=== PATIENT | male | born 1990 | race American Indian/Alaskan Native ===

== ENCOUNTER 2017-05-13 19:01 | Emergency (ER) | payer BC ==
[2017-05-13 19:15] VITALS: BP 144/94
--- NOTE | 2017-05-13 19:34 | EDM.PDOC ---
ED HPI GENERAL MEDICAL PROBLEM - General Chief Complaint: Lower Extremity Injury/Pain Stated Complaint: RIGHT HIP PAIN Time Seen by Provider: 05/13/17 19:20 Source of Information: Reports: Patient History Limitations: Reports: No Limitations - History of Present Illness INITIAL COMMENTS - FREE TEXT/NARRATIVE: The patient presents with right hip and low back pain. This started last night after he helped his aunt move. He has a history of a hip dislocation that was reduced and he had a bone chip after that that has been giving him some trouble. Onset: Sudden Duration: Day(s): (Last night) Location: Reports: Back (Right lower), Lower Extremity, Right (hip) Quality: Reports: Sharp Severity: Moderate Improves with: Reports: None Worsens with: Reports: Movement Associated Symptoms: Reports: No Other Symptoms Right Hip Pain Score (Numeric/FACES): 10 - Related Data Allergies Allergy/AdvReac Type Severity Reaction Status Date / Time No Known Allergies Allergy Verified 05/13/17 19:15 Home Meds: Home Meds Hydrocodone/Acetaminophen [Hydrocodon-Acetaminophen 5-325] 1 - 2 each PO Q6HR PRN #20 tablet 05/13/17 [Rx] Naproxen [Naprosyn] 500 mg PO Q12HR #20 tablet 05/13/17 [Rx] Review of Systems - Review of Systems Review Of Systems: See Below Constitutional: Reports: No Symptoms Eyes: Reports: No Symptoms Ears: Reports: No Symptoms Nose: Reports: No Symptoms Mouth/Throat: Reports: No Symptoms Respiratory: Reports: No Symptoms Cardiovascular: Reports: No Symptoms GI/Abdominal: Reports: No Symptoms Genitourinary: Reports: No Symptoms Musculoskeletal: Reports: Other (Right hip pain and low back pain) ED EXAM, GENERAL - Physical Exam Exam: See Below Exam Limited By: No Limitations General Appearance: Alert, No Apparent Distress Ears: Normal External Exam Nose: Normal Inspection Head: Atraumatic, Normocephalic Neck: Normal Inspection Respiratory/Chest: No Respiratory Distress, Lungs Clear, Normal Breath Sounds Cardiovascular: Regular Rate, Rhythm, No Edema, No Murmur GI/Abdominal: Soft, Non-Tender, No Organomegaly, No Mass Back Exam: Other (Pain upon palpation to the right lower back) Extremities: Other (Right hip pain upon palpation. Good sensation and pulses distally.) Course - Vital Signs Last Recorded V/S: Last Vital Signs Temp 98.2 F 05/13/17 19:13 Pulse 92 05/13/17 19:13 Resp 18 05/13/17 19:13 BP 144/94 H 05/13/17 19:13 Pulse Ox 99 05/13/17 19:13 Departure - Departure Time of Disposition: 19:35 Disposition: Home, Self-Care 01 Condition: Good Clinical Impression: Right hip pain Low back pain Qualifiers: Chronicity: acute Back pain laterality: right Sciatica presence: without sciatica Qualified Code(s): M54.5 - Low back pain - Discharge Information Prescriptions: Hydrocodone/Acetaminophen [Hydrocodon-Acetaminophen 5-325] 1 - 2 each PO Q6HR PRN #20 tablet PRN Reason: Pain Naproxen [Naprosyn] 500 mg PO Q12HR #20 tablet Referrals: Emily Medeiros PA-C [Physician Purchasing Buyer] - 1 Week Forms: ED Department Discharge Additional Instructions: Take the naprosyn 2 times per day and the hydrocodone for pain. Follow up with Emily Medeiros if you are not better.
== END 2017-05-13 20:06 | disposition home or self-care (01) ==
LOC: JD.ED 19:01
DX: M25.551 Pain in right hip (principal); M54.5 Low back pain; X58.XXXA Exposure to other specified factors, initial encounter
CPT/HCPCS: 99283

== ENCOUNTER 2017-05-15 11:37 | Emergency (ER) | payer BC ==
[2017-05-15] MEDS ORDERED: Ketorolac 60 MG/2 ML SDV IM ONE (12:34)
[2017-05-15] MEDS ORDERED: Ondansetron 4 MG Tab.DIS PO ONE (12:35)
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
[2017-05-15 14:39] VITALS: BP 120/82
--- NOTE | 2017-05-16 09:29 | CR ---
Lumbar spine: AP, lateral and coned-down lateral views centered to the lumbosacral junction were obtained. Vertebral body heights and disc spaces are preserved. Pedicles as well as transverse and spinous processes are intact. No subluxation or fracture is seen. Sacroiliac joints are within normal limits. Impression: 1. No abnormality is identified on three-view lumbar spine study. Diagnostic code #2
--- NOTE | 2017-05-16 09:29 | CT ---
Head CT Technique: Multiple axial sections were obtained through the brain. Intravenous contrast was not utilized. Comparison: No previous intracranial imaging. Findings: Ventricles along the basal cisterns and sulci over the convexities are within normal limits for the patient's age. No abnormal parenchymal densities are seen. No evidence of intracranial hemorrhage. No midline shift or mass effect is seen. Bone window settings were reviewed which show no discrete calvarial abnormality. Visualized sinuses are clear. Impression: 1. No acute intracranial abnormality is identified. Diagnostic code #1 Agree with preliminary report issued by [facility] ([facility] preliminary report dictated on 05/15/17, 2:32 PM Central Time)
--- NOTE | 2017-05-16 09:29 | CR ---
Thoracic spine: AP, lateral and swimmer's views of the thoracic spine was obtained. Comparison: No previous study. Slight anterior wedging noted of a midthoracic vertebral body. Vertebral body heights otherwise are maintained. Disc spaces are preserved. No subluxation is seen. Impression: 1. Slight anterior wedging of a midthoracic vertebral body. Age of this is indeterminate. If further evaluation for acute compression deformity is needed, MRI would be helpful. 2. No abnormal subluxation or other abnormality is appreciated. Diagnostic code #3
== END 2017-05-15 13:20 | disposition home or self-care (01) ==
LOC: JD.ED 11:37
DX: S39.012A Strain of muscle, fascia and tendon of lower back, initial encounter (principal); S00.33XA Contusion of nose, initial encounter; V89.2XXA Person injured in unspecified motor-vehicle accident, traffic, initial encounter; Y92.410 Unspecified street and highway as the place of occurrence of the external cause; F17.210 Nicotine dependence, cigarettes, uncomplicated
CPT/HCPCS: 70450; 72070; 72100; 96372; 99284; A9270; J1885

== ENCOUNTER 2018-05-30 09:48 | Emergency (ER) | payer BC ==
[2018-05-30 10:07] VITALS: BP 109/65
--- NOTE | 2018-05-30 10:07 | EDM.PDOC ---
<Elliott Lambert - Last Filed: 05/30/18 10:06> ED HPI GENERAL MEDICAL PROBLEM - General Chief Complaint: Upper Extremity Injury/Pain Stated Complaint: L HAND INJURY Time Seen by Provider: 05/30/18 10:05 - Related Data Allergies Allergy/AdvReac Type Severity Reaction Status Date / Time No Known Allergies Allergy Verified 05/30/18 10:00 Home Meds: Home Meds . [No Known Home Meds] 05/30/18 [History] Past Medical History - Past Health History Medical/Surgical History: Denies Medical/Surgical History Musculoskeletal History: Reports: Fracture, Other (See Below) Other Musculoskeletal History: dislocated hip Neurological History: Reports: Migraines - Infectious Disease History Infectious Disease History: Reports: Chicken Pox Social & Family History - Caffeine Use Caffeine Use: Reports: Energy Drinks, Soda Course - Vital Signs Last Recorded V/S: Last Vital Signs Temp 36.9 C 05/30/18 10:01 Pulse 96 05/30/18 10:01 Resp 13 05/30/18 10:01 BP 109/65 05/30/18 10:01 Pulse Ox 98 05/30/18 10:01 - Orders/Labs/Meds Orders: Active Orders 24 hr Category Date Time Status Hand Comp Min 3V Lt [CR] Stat Exams 05/30/18 10:26 Taken Wrist Comp Min 3V Lt [CR] Stat Exams 05/30/18 10:30 Taken Meds: Medications Discontinued Medications Generic Name Dose Route Start Last Admin Trade Name Freq PRN Reason Stop Dose Admin Ibuprofen 600 mg 05/30/18 11:11 Motrin PO 05/30/18 11:12 ONETIME ONE Oxycodone/Acetaminophen 1 tab 05/30/18 11:12 Percocet 325-5 Mg PO 05/30/18 11:13 ONETIME ONE Departure - Departure Disposition: Home, Self-Care 01 Clinical Impression: Sprain of left wrist Contusion of hand, left Qualifiers: Encounter type: initial encounter Qualified Code(s): S60.222A - Contusion of left hand, initial encounter - Discharge Information Referrals: PCP,None [Primary Care Provider] - Forms: ED Department Discharge Additional Instructions: Evaluation the emergency room today in regards to trip and fall at home with blunt trauma to the left hand particularly the palmar aspect of the left thumb. You have contused the thenar eminence muscles with marked swelling muscles at the base of your thumb which limited mobility. X-rays of your left hand do not reveal any broken bones within the left thumb or hand. Similarly x-rays of the left wrist reveal the wrist bones to be normal. It is therefore Josue wrap on during the day and off at night for about the next 3 days. Ice pack to the area for one half hour out of every 4 hours today and tomorrow. Try keep the hand elevated at the level of your heart is much as possible to limit swelling. Given one Percocet tablet in the ED with Motrin 600 mg. Continue Motrin 600 mg every 6 hours as needed for pain relief for the next few days. The swelling and pain should improve quite dramatically over the next 3-5 days. - My Orders Last 24 Hours: My Active Orders 05/30/18 10:26 Hand Comp Min 3V Lt [CR] Stat 05/30/18 10:30 Wrist Comp Min 3V Lt [CR] Stat - Assessment/Plan Last 24 Hours: My Active Orders 05/30/18 10:26 Hand Comp Min 3V Lt [CR] Stat 05/30/18 10:30 Wrist Comp Min 3V Lt [CR] Stat <Zia Caro - Last Filed: 05/30/18 11:16> ED HPI GENERAL MEDICAL PROBLEM - General Source of Information: Reports: Patient, Family History Limitations: Reports: No Limitations - History of Present Illness INITIAL COMMENTS - FREE TEXT/NARRATIVE: 28-year-old male presents to the ED for evaluation of acute injury to his left hand and wrist. Patient states he was walking out his door to the outside stairway this morning when he tripped and fell over the soap light. He struck the or frame with the palmar aspect of his left hand. He has significant swelling of the thenar eminence and limited mobility of his left thumb and complains of pain throughout the distal wrist. Injury occurred about 8:30 this morning. Denies hitting his head or injuring any other body parts. Not sure when his last tetanus toxoid was updated. Onset: Today Onset Date: 05/30/18 Onset Time: 08:30 Duration: Minutes: Location: Reports: Upper Extremity, Left (Left volar hand particularly the thenar eminence thumb and distal radius) Quality: Reports: Ache, Throbbing Severity: Moderate Improves with: Reports: Rest Worsens with: Reports: Movement Context: Reports: Trauma (It can fell while walking out of his apartment today over the sole plate. Hit the door jam hard with his left hand and wrist area.). Denies: Activity, Exercise, Lifting, Sick Contact Associated Symptoms: Reports: No Other Symptoms Treatments CREATIVE ARTS THERAPIST: Reports: Other (see below) (None.) Left Wrist Pain Score (Numeric/FACES): 10 Social & Family History - Living Situation & Occupation Living situation: Reports: Single, with Significant Other Occupation: Employed Review of Systems - Review of Systems Review Of Systems: See Below Constitutional: Reports: No Symptoms Eyes: Reports: No Symptoms Ears: Reports: No Symptoms Nose: Reports: No Symptoms Mouth/Throat: Reports: No Symptoms Respiratory: Reports: No Symptoms Cardiovascular: Reports: No Symptoms GI/Abdominal: Reports: No Symptoms Genitourinary: Reports: No Symptoms Musculoskeletal: Reports: Other (Acute injury to his left hand and wrist area today. See history of present illness) Skin: Reports: No Symptoms Neurological: Reports: No Symptoms Psychiatric: Reports: No Symptoms ED EXAM, GENERAL - Physical Exam Exam: See Below Exam Limited By: No Limitations General Appearance: Alert, WD/WN, Moderate Distress (Seems to be in significant discomfort.) Respiratory/Chest: No Respiratory Distress, Lungs Clear, Normal Breath Sounds, No Accessory Muscle Use Cardiovascular: Normal Peripheral Pulses, Regular Rate, Rhythm, No Edema, No Gallop, No Murmur, No Rub Extremities: Other (Examination limited to his left hand which he is left-hand dominant. He has significant swelling with erythema and thenar eminence and pain throughout the first metacarpal joint. Pain distal radius and ulna also on exam and scaphoid area. Elbow is intact mid forearm appeared to be normal. He has no other injuries. There is a small avulsion of skin superficial 3 mm in diameter over the proximal thenar eminence.) Neurological: Alert, Oriented, CN II-XII Intact, Normal Cognition Psychiatric: Normal Affect, Normal Mood Skin Exam: Warm, Dry, Intact, Normal Color, No Rash Course - Orders/Labs/Meds Orders: Active Orders 24 hr Category Date Time Status Hand Comp Min 3V Lt [CR] Stat Exams 05/30/18 10:26 Taken Wrist Comp Min 3V Lt [CR] Stat Exams 05/30/18 10:30 Taken Meds: Medications Discontinued Medications Generic Name Dose Route Start Last Admin Trade Name Allen PRN Reason Stop Dose Admin Ibuprofen 600 mg 05/30/18 11:11 Motrin PO 05/30/18 11:12 ONETIME ONE Oxycodone/Acetaminophen 1 tab 05/30/18 11:12 Percocet 325-5 Mg PO 05/30/18 11:13 ONETIME ONE - Radiology Interpretation Free Text/Narrative:: 28-year-old male presents the ED after an acute fall at home. He jammed up his left wrist and hand when he hit the door frame. He has marked swelling over the thenar eminence and lipid very limited mobility of his left thumb with pain throughout the first metacarpal joint. Pain throughout the distal radius and ulna as well. Plan x-ray of the hand and wrist to be obtained. - Re-Assessments/Exams Free Text/Narrative Re-Assessment/Exam: 05/30/18 11:12 x-rays of the left hand reveal no fractures. Similarly x-rays of the left wrist reveal no fractures. Treatment will be conservative with Josue wrap elevation above level of heart for the next 2 days and ice pack every 4 hours to the area. Motrin 600 mg every 6 hours needed for pain relief Departure - Departure Time of Disposition: 11:13 Condition: Fair - Discharge Information *PRESCRIPTION DRUG MONITORING PROGRAM REVIEWED*: Not Applicable *COPY OF PRESCRIPTION DRUG MONITORING REPORT IN PATIENT DONOVAN: Not Applicable - My Orders Last 24 Hours: My Active Orders 05/30/18 10:26 Hand Comp Min 3V Lt [CR] Stat 05/30/18 10:30 Wrist Comp Min 3V Lt [CR] Stat - Assessment/Plan Last 24 Hours: My Active Orders 05/30/18 10:26 Hand Comp Min 3V Lt [CR] Stat 05/30/18 10:30 Wrist Comp Min 3V Lt [CR] Stat
[2018-05-30] MEDS ORDERED: Ibuprofen 600 MG Tab PO ONE (11:11)
[2018-05-30] MEDS ORDERED: Acetaminophen/oxyCODONE 325-5 MG Tab PO ONE (11:12)
--- NOTE | 2018-06-03 12:34 | CR ---
Left wrist: Four views of the left wrist were obtained. Comparison: No prior study. Joint spaces are preserved. No fracture, dislocation or other bony abnormality is seen. Impression: 1. No abnormality is identified on the left wrist exam. Diagnostic code #1
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
== END 2018-05-30 11:30 | disposition home or self-care (01) ==
LOC: JD.ED 09:48
DX: S63.502A Unspecified sprain of left wrist, initial encounter (principal); S60.222A Contusion of left hand, initial encounter; W01.198A Fall on same level from slipping, tripping and stumbling with subsequent striking against other object, initial encounter
CPT/HCPCS: 73110; 73130; 99283; A9270

== ENCOUNTER → 2019-03-08 21:25 | Emergency (ER) | payer BC | END | disposition left against medical advice (07) | LOC: JD.ED 21:25 | DX: Z53.21 Procedure and treatment not carried out due to patient leaving prior to being seen by health care provider (principal) ==

== ENCOUNTER 2019-03-09 01:44 | Emergency (ER) | payer BC, MEDICAID ==
[2019-03-09 01:58] VITALS: BP 134/85
[2019-03-09] MEDS ORDERED: Doxycycline 100 MG Cap PO ONE (02:45)
--- NOTE | 2019-03-09 02:50 | EDM.PDOC ---
ED HPI GENERAL MEDICAL PROBLEM - General Chief Complaint: Skin Complaint Stated Complaint: ABCESS IN ARM Time Seen by Provider: 03/09/19 02:29 Source of Information: Reports: Patient, RN Notes Reviewed - History of Present Illness INITIAL COMMENTS - FREE TEXT/NARRATIVE: 29-year-old male comes in with concern about infection developing antecubital space right arm. It started getting sore about a day and a half ago and now there is some erythema developing around the area of soreness. Fever or chills. He has been using IV drugs with frequent needle access to that area. Right Arm Pain Score (Numeric/FACES): 5 - Related Data Allergies Allergy/AdvReac Type Severity Reaction Status Date / Time No Known Allergies Allergy Verified 03/09/19 01:58 Home Meds: Home Meds . [No Known Home Meds] 05/30/18 [History] Past Medical History - Past Health History Medical/Surgical History: Denies Medical/Surgical History Musculoskeletal History: Reports: Fracture, Other (See Below) Other Musculoskeletal History: dislocated hip Neurological History: Reports: Migraines Psychiatric History: Reports: Addiction - Infectious Disease History Infectious Disease History: Reports: Chicken Pox Social & Family History - Tobacco Use Smoking Status *Q: Current Some Day Smoker Years of Tobacco use: 10 Packs/Tins Daily: 0.5 Used Tobacco, but Quit: No - Caffeine Use Caffeine Use: Reports: Coffee - Recreational Drug Use Recreational Drug Use: Yes Drug Use in Last 12 Months: Yes Recreational Drug Type: Reports: Methamphetamine Recreational Drug Use Frequency: Binges - Living Situation & Occupation Living situation: Reports: Single, with Significant Other Occupation: Employed ED ROS GENERAL - Review of Systems Review Of Systems: See Below Constitutional: Denies: Fever, Chills, Diaphoresis HEENT: Denies: Throat Pain Respiratory: Reports: No Symptoms Cardiovascular: Denies: Chest Pain GI/Abdominal: Denies: Abdominal Pain, Vomiting Musculoskeletal: Reports: Arm Pain Skin: Reports: Erythema (small area of localized erythema antecubital space right right arm) Neurological: Reports: No Symptoms ED EXAM, SKIN/RASH Exam: See Below General Appearance: Alert, No Apparent Distress Head: Atraumatic Neck: Supple Respiratory/Chest: No Respiratory Distress Cardiovascular: Tachycardia (mild, rate 106) Extremities: Redness (there is very localized erythema of the antecubital space right forearm measuring about 1.5 x 3 cm. Very small area of localized swelling and tenderness.), Other (needle track barnes visible.) Neurological: No Motor/Sensory Deficits Course - Vital Signs Last Recorded V/S: Last Vital Signs Temp 96.7 F 03/09/19 01:51 Pulse 106 H 03/09/19 01:51 Resp 20 03/09/19 01:51 BP 134/85 03/09/19 01:51 Pulse Ox 100 03/09/19 01:51 - Orders/Labs/Meds Meds: Medications Discontinued Medications Generic Name Dose Route Start Last Admin Trade Name Allen PRN Reason Stop Dose Admin Doxycycline Hyclate 200 mg 03/09/19 02:45 03/09/19 02:50 Vibramycin PO 03/09/19 02:46 200 mg ONETIME ONE Administration Departure - Departure Time of Disposition: 03:00 Disposition: Home, Self-Care 01 Condition: Fair Clinical Impression: Cellulitis Qualifiers: Site of cellulitis: extremity Site of cellulitis of extremity: upper extremity Laterality: right Qualified Code(s): L03.113 - Cellulitis of right upper limb - Discharge Information Instructions: Cellulitis, Adult, [id number] Referrals: PCP,None [Primary Care Provider] - Forms: ED Department Discharge Additional Instructions: warm compresses area of infection 2-3 times daily, doxycycline 200 mg twice daily for 3 days and than 100 mg twice daily. follow-up clinic if symptoms not resolving as expected, return to ED as needed.
== END 2019-03-09 02:56 | disposition home or self-care (01) ==
LOC: JD.ED 01:44
DX: L03.113 Cellulitis of right upper limb (principal); F17.210 Nicotine dependence, cigarettes, uncomplicated
CPT/HCPCS: 99283; A9270

== ENCOUNTER 2019-05-26 22:10 | Emergency (ER) | payer MEDICAID ==
[2019-05-26 22:17] VITALS: BP 139/94
--- NOTE | 2019-05-26 22:25 | EDM.PDOC ---
ED HPI GENERAL MEDICAL PROBLEM - General Chief Complaint: Upper Extremity Injury/Pain Stated Complaint: LAW ENFORCEMENT Time Seen by Provider: 05/26/19 22:13 - History of Present Illness INITIAL COMMENTS - FREE TEXT/NARRATIVE: 29-year-old male presents emergency room with a right hand injury. Shortly before arrival the patient who is incarcerated punched a metal door and now has a sore right hand that is red and swollen. Patient denies any other injuries. Right Hand Pain Score (Numeric/FACES): 7 - Related Data Allergies Allergy/AdvReac Type Severity Reaction Status Date / Time No Known Allergies Allergy Verified 05/26/19 22:18 Home Meds: Home Meds . [No Known Home Meds] 05/30/18 [History] Past Medical History - Past Health History Medical/Surgical History: Denies Medical/Surgical History Musculoskeletal History: Reports: Fracture, Other (See Below) Other Musculoskeletal History: dislocated hip Neurological History: Reports: Migraines Psychiatric History: Reports: Addiction - Infectious Disease History Infectious Disease History: Reports: Chicken Pox Social & Family History - Caffeine Use Caffeine Use: Reports: Coffee - Living Situation & Occupation Living situation: Reports: Single, with Significant Other Occupation: Employed Review of Systems - Review of Systems Review Of Systems: See Below Constitutional: Reports: No Symptoms Respiratory: Reports: No Symptoms Cardiovascular: Reports: No Symptoms GI/Abdominal: Reports: No Symptoms ED EXAM, GENERAL - Physical Exam Exam: See Below Exam Limited By: No Limitations General Appearance: Alert, No Apparent Distress Head: Atraumatic, Normocephalic Neck: Normal Inspection, Supple, Non-Tender, Full Range of Motion Respiratory/Chest: No Respiratory Distress, Lungs Clear, Normal Breath Sounds Cardiovascular: Regular Rate, Rhythm, No Edema, No Murmur Extremities: Other (Examination of the right hand shows a normal wrist good range of motion of the arm he has marked swelling over the distal dorsum of the hand over the third and fourth carpal heads and to a lesser degree the fifth metatarsal head he has significant swelling between the third and fourth metacarpal is limited range of motion due to pain neurologic sensation in the digits appears to be intact) ED TRAUMA EXTREMITY PROCEDURES - Splinting Right Upper Extremity Pre-Procedure NV Status: Normal Post-Procedure NV Status: Normal Splint Material: Fiberglass Splint Design: [employer]olar Applied & Form Fitted By: Provider Provider Post-Splint Application NV Check: NV Status Normal Complications: No Course - Vital Signs Last Recorded V/S: Last Vital Signs Temp 36.8 C 05/26/19 22:13 Pulse 77 05/26/19 22:13 Resp 16 05/26/19 22:13 BP 139/94 H 05/26/19 22:13 Pulse Ox 100 05/26/19 22:13 - Orders/Labs/Meds Orders: Active Orders 24 hr Category Date Time Status Hand Comp Min 3V Rt [CR] Stat Exams 05/26/19 22:18 Taken - Re-Assessments/Exams Free Text/Narrative Re-Assessment/Exam: 05/26/19 23:49 Examination of the hand does not reveal any obvious acute fracture dislocation, IM a little suspicious of underlying fracture than I'm not seeing at this time. The patient's placed in a short arm volar splint in neutral position. Departure - Departure Time of Disposition: 23:51 Disposition: DC/Tfer to Court of Law En 21 Clinical Impression: Injury of right hand - Discharge Information Forms: ED Department Discharge Additional Instructions: Return to emergency room if any questions problems worsening symptoms. Have his hand reevaluated by the provider there at the [facility] in 2 days. Ibuprofen as needed for discomfort. Keep your hand elevated as much as you can use ice for the next couple of days - My Orders Last 24 Hours: My Active Orders 05/26/19 22:18 Hand Comp Min 3V Rt [CR] Stat - Assessment/Plan Last 24 Hours: My Active Orders 05/26/19 22:18 Hand Comp Min 3V Rt [CR] Stat
--- NOTE | 2019-05-27 08:05 | CR ---
Right hand: Four views of the right hand were obtained. Comparison: No prior right hand exam. Soft tissue swelling is noted. Deformity is noted of the 5th metacarpal likely relating to old healed fracture. No acute fracture or dislocation is seen. Impression: 1. Soft tissue swelling. 2. Probable old healed fracture within the 5th metacarpal. 3. No acute bony abnormality is identified on right hand exam. Diagnostic code #3
== END 2019-05-26 23:57 ==
LOC: JD.ED 22:10
DX: S69.91XA Unspecified injury of right wrist, hand and finger(s), initial encounter (principal); W22.8XXA Striking against or struck by other objects, initial encounter
CPT/HCPCS: 29125; 73130-26-RT; 73130-RT; 99283-25

== ENCOUNTER 2024-01-24 09:26 | Emergency (ER) | payer SELFPAY ==
[2024-01-24] MEDS: Haloperidol Lactate 5 MG/ML SDV IM ONE (09:38)
[2024-01-24] MEDS: Lactated Ringers 1,000 ML IV ONE ×2 (09:49→10:54)
[2024-01-24] MEDS: Haloperidol Lactate 5 MG/ML SDV ONE (09:51)
[2024-01-24 10:02] LABS: BASOPHILS ABSOLUTE AUTO 0.1 K/mm3 (0.0-0.2); BASOPHILS PERCENT AUTO 0.4 % (0.0-1.0); HEMATOCRIT 46.8 % (42.0-52.0); HEMOGLOBIN 16.3 gm/dl (14.0-18.0); IMMATURE GRAN ABSOLUTE AUTO 0.07 K/mm3 (0.00-0.05); IMMATURE GRAN PERCENT AUTO 0.5 % (0.0-0.4); LYMPHOCYTES ABSOLUTE AUTO 4.5 K/mm3 (1.0-4.8); LYMPHOCYTES PERCENT AUTO 32.6 % (24.0-44.0); MEAN CORPUSCULAR HEMOGLOBIN 29.9 pg (28.0-32.0); MEAN CORPUSCULAR HGB CONC 34.8 g/dl (32.0-36.0); MEAN CORPUSCULAR VOLUME 85.7 fl (83.0-99.0); MONOCYTES ABSOLUTE AUTO 0.8 K/mm3 (0.0-0.8); MONOCYTES PERCENT AUTO 5.6 % (0.0-8.0); NEUTROPHILS ABSOLUTE AUTO 8.3 K/mm3 (1.8-7.7); NEUTROPHILS PERCENT AUTO 60.9 % (41.0-71.0); PLATELET COUNT,PLT 337 K/mm3 (150-400); RED BLOOD CELL COUNT 5.46 M/mm3 (4.52-5.90); WHITE BLOOD CELL COUNT,WBC 13.67 K/mm3 (3.9-11.3)
[2024-01-24 10:25] LABS: A/G RATIO 1.1 (1-2); ALBUMIN 4.4 g/dl (3.4-5.0); ANION GAP 19.6 (5-15); BILIRUBIN TOTAL 1.1 mg/dL (0.2-1.0); BUN/CREATININE RATIO 11.7 (14-18); CALCIUM 8.6 mg/dL (8.5-10.1); CREATININE 1.2 mg/dL (0.7-1.3); EST CRCL DRUG DOSING (CG) 85.5 mL/min; ETHANOL BLOOD MEDICAL 0.32 gm% (0.00); POTASSIUM,K 3.6 mEq/L (3.5-5.1); PROTEIN TOTAL,TP 8.6 g/dl (6.4-8.2)
[2024-01-24 12:27] LABS: BARBITURATE SCREEN,URINE NEGATIVE (CUTOFF=200); BENZODIAZEPINES SCREEN,URINE NEGATIVE (CUTOFF=150); BUPRENORPHINE SCREEN,URINE NEGATIVE (CUTOFF=10); METHADONE SCREEN, URINE NEGATIVE (CUT0FF=200); METHAMPHETAMINES SCREEN, URINE NEGATIVE (CUTOFF=500); OXYCODONE SCREEN,URINE NEGATIVE (CUT0FF=100); THC SCREEN,URINE 20 NG/ML PRESUMPTIVE POSITIVE (CUTOFF=50)
[2024-01-24 12:29] LABS: AMPHETAMINES SCREEN, URINE NEGATIVE (CUTOFF=500)
[2024-01-24 14:36] VITALS: BP 104/58; PULSE 80
== END 2024-01-24 13:51 | disposition home or self-care (01) ==
LOC: JD.ED 09:26
DX: F10.129 Alcohol abuse with intoxication, unspecified (principal); Y90.8 Blood alcohol level of 240 mg/100 ml or more
CPT/HCPCS: 36415; 80053; 80306; 80307; 85025; 93005; 96360; 96361; 96372; 99283; J1630; J7120; 93010; 99284